=== PATIENT | female | born 1985 | race American Indian/Alaskan Native ===

== ENCOUNTER 2021-07-08 08:59 | Emergency (ER) | payer OTHER ==
[2021-07-08 11:07] LABS: Bacteria,Urine 1+ /HPF (Negative); Bilirubin,Urine NEG (Negative); Blood,Urine MOD (Negative); Color,Urine Yellow (Yellow); Mucus,Urine 3+ /HPF; Protein,Urine <15 mg/dL mg/dL (Negative); Urobilinogen,Urine < 2.0 mg/dL (<2.0)
--- NOTE | 2021-07-08 11:08 | Ultrasound Report ---
ULTRASOUND OBSTETRIC INDICATION / CLINICAL INFORMATION: Vaginal bleeding. - Clinical Gestational Age (GA) in weeks.days: 8.6 TECHNIQUE: Transabdominal and Transvaginal. COMPARISON: None available. FINDINGS: GESTATIONAL SAC: Well-defined oval shape and intrauterine in location. YOLK SAC: No significant abnormality. EMBRYO/FETUS: No significant abnormality. - [place]-Rump Length = 0.57 cm = 6.3 weeks.days - Heart Rate, beats per minute (if present) = 153 UTERUS: 1.5 cm fibroid in the anterior uterine body. ADNEXA: Both ovaries are normal in size. There is no evidence of adnexal mass. There is normal blood flow to both ovaries on Doppler exam. FREE FLUID: None. ADDITIONAL FINDINGS: None. IMPRESSION: 1. Single, living intrauterine with estimated sonographic age of 6.3 weeks.days. 2. 1.5 cm fibroid in the anterior uterine body. Signer Name: Jose Ardon MD Signed: 07/08/2021 11:04 AM Workstation Name: [id number]
--- NOTE | 2021-07-08 11:08 | Ultrasound Report ---
Please see combined report from the same date. Signer Name: Jose Ardon MD Signed: 07/08/2021 11:04 AM Workstation Name: [id number]
[2021-07-08 11:11] LABS: WBC,Urine < 1.0 /HPF (0.0-6.0)
[2021-07-08 11:32] LABS: Hematocrit 36.5 % (30.3-42.9); Hemoglobin 12.3 gm/dl (10.1-14.3); Mean Corpuscular HGB Conc 34 % (30-34); Mean Corpuscular Volume 102 fl (79-97); Platelet Count 275 K/mm3 (140-440); Red Cell Distribution Width 12.6 % (13.2-15.2)
--- NOTE | 2021-07-08 12:38 | Emergency Department Report ---
ED Female HPI - General Chief complaint: Vaginal Bleeding Stated complaint: /BLEEDING Source: patient Mode of arrival: Ambulatory Limitations: No Limitations - History of Present Illness Initial comments: 36-year-old female presents to the ED with vaginal bleeding. Patient is 4 Para 0 A 3. She states that she noticed some vaginal bleeding when she wipes. She denies having to use a maxi pad. States that she has had 3 miscarriage in the past. Denies any abdominal pain vaginal discharge at present time. She is alert and oriented x3. No acute distress noted. No ill appearance noted. Patient denies any chest pains or shortness of breath at present time. MD Complaint: vaginal bleeding Onset/Timin -: Gradual Severity scale (0 -10): 0 Worsens with: none Are you Now?: No Associated Symptoms: denies other symptoms - Related Data : 4 Para: 0 A: 3 Allergies Allergy/AdvReac Type Severity Reaction Status Date / Time No Known Allergies Allergy Unverified 07/08/21 09:44 ED Review of Systems ROS: Stated complaint: /BLEEDING Other details as noted in HPI Constitutional: denies: chills, fever Eyes: denies: eye pain, eye discharge, vision change ENT: denies: ear pain, throat pain Respiratory: denies: cough, shortness of breath, wheezing Cardiovascular: denies: chest pain, palpitations Endocrine: no symptoms reported Gastrointestinal: denies: abdominal pain, nausea, diarrhea Genitourinary: denies: urgency, dysuria, discharge Musculoskeletal: denies: back pain, joint swelling, arthralgia Skin: denies: rash, lesions Neurological: denies: headache, weakness, paresthesias Psychiatric: denies: anxiety, depression Hematological/Lymphatic: denies: easy bleeding, easy bruising ED Past Medical Hx - Past Medical History Previous Medical History?: Yes Additional medical history: Miscarriage x 3 - Surgical History Past Surgical History?: No ED Physical Exam - General Limitations: No Limitations General appearance: alert, in no apparent distress - Head Head exam: Present: atraumatic, normocephalic - Eye Eye exam: Present: normal appearance - ENT ENT exam: Present: mucous membranes moist - Neck Neck exam: Present: normal inspection - Respiratory Respiratory exam: Present: normal lung sounds bilaterally. Absent: respiratory distress - Cardiovascular Cardiovascular Exam: Present: regular rate, normal rhythm. Absent: systolic murmur, diastolic murmur, rubs, gallop - GI/Abdominal GI/Abdominal exam: Present: soft, normal bowel sounds - Extremities Exam Extremities exam: Present: normal inspection - Back Exam Back exam: Present: normal inspection - Neurological Exam Neurological exam: Present: alert, oriented X3 - Psychiatric Psychiatric exam: Present: normal affect, normal mood - Skin Skin exam: Present: warm, dry, intact, normal color. Absent: rash ED Course Vital Signs 07/08/21 09:48 Temperature 98.4 F Pulse Rate 90 Respiratory 18 Rate Blood Pressure 98/69 O2 Sat by Pulse 100 Oximetry ED Medical Decision Making - Lab Data Result diagrams: 07/08/21 11:21 - Radiology Data [facility] [address] [id number] Ultrasound Report Signed Patient: DELLA COTA MR#: [id number] : 1985 Acct:[id number] Age/Sex: 36 / F ADM Date: 07/08/21 Loc: ED Attending Dr: Ordering Physician: YESENIA RODRIGUEZ Date of Service: 07/08/21 Procedure(s): US OB <= 14 weeks fetus Accession Number(s): [id number] cc: YESENIA RODRIGUEZ ULTRASOUND OBSTETRIC INDICATION / CLINICAL INFORMATION: Vaginal bleeding. - Clinical Gestational Age (GA) in weeks.days: 8.6 TECHNIQUE: Transabdominal and Transvaginal. COMPARISON: None available. FINDINGS: GESTATIONAL SAC: Well-defined oval shape and intrauterine in location. YOLK SAC: No significant abnormality. EMBRYO/FETUS: No significant abnormality. - [place]-Rump Length = 0.57 cm = 6.3 weeks.days - Heart Rate, beats per minute (if present) = 153 UTERUS: 1.5 cm fibroid in the anterior uterine body. ADNEXA: Both ovaries are normal in size. There is no evidence of adnexal mass. There is normal blood flow to both ovaries on Doppler exam. FREE FLUID: None. ADDITIONAL FINDINGS: None. IMPRESSION: 1. Single, living intrauterine with estimated sonographic age of 6.3 weeks.days. 2. 1.5 cm fibroid in the anterior uterine body. Signer Name: Jose Ardon MD Signed: 07/08/2021 11:04 AM Workstation Name: [id number] Transcribed By: RT Dictated By: Jose Ardon MD Electronically Authenticated By: Jose Ardon MD Signed Date/Time: 07/08/21 1104 DD/ 1058 TD/TT: - Medical Decision Making 36-year-old female presents to the ED with vaginal bleeding. Patient is 4 Para 0 A 3. She states that she noticed some vaginal bleeding when she wipes. She denies having to use a maxi pad. States that she has had 3 miscarriage in the past. Denies any abdominal pain vaginal discharge at present time. She is alert and oriented x3. No acute distress noted. No ill appearance noted. Patient denies any chest pains or shortness of breath at present time. Patient is current followed by my [employer]. Physical examination is unremarkable. Transvaginal ultrasound shows single intrauterine at 6 weeks. Uterine fibroid noted. hCG count [id number] Rechecked the patient is resting quietly quietly and comfortable and feeling better. I discussed the results of diagnostic study, my clinical impression and the plan for further treatment with the patient. Patient agrees with plan and discharge at this present time. All question addressed. I have given the patient instruction regarding a diagnosis ,expectation ,follow- up and return precaution. I explained to the patient that emergent condition may arise and to return to the ED for new worsen and any new persisting condition. I have explained the importance of following up with the primary care physician or referral physician listed below has instructed. The patient verbalized understanding of discharge instruction. Critical care attestation.: If time is entered above; I have spent that time in minutes in the direct care of this critically ill patient, excluding procedure time. ED Disposition Clinical Impression: Vaginal bleeding affecting early Disposition: HOME / SELF CARE / HOMELESS Is pt being admited?: No Does the pt Need Aspirin: No Condition: Stable Instructions: Vaginal Bleeding During , First Trimester Additional Instructions: Follow-up with my [facility] Return to ED for any worsening symptoms Referrals: EMMA FORD MD [Primary Care Provider] - 3-5 Days Forms: Work/School Release Form(ED) Time of Disposition: 12:40
[2021-07-08 12:43] VITALS: BP 108/69
[2021-07-08 13:02] LABS: Alanine Aminotransferase 14 units/L (7-56); Albumin 4.2 g/dL (3.9-5); Blood Urea Nitrogen 9 mg/dL (7-17); Calcium 9.3 mg/dL (8.4-10.2); Hemolysis Index 25
[2021-07-08 13:05] LABS: BUN/Creatinine Ratio 15
== END 2021-07-08 12:43 | disposition home or self-care (01) ==
LOC: ED 08:59
DX: O20.8 Other hemorrhage in early pregnancy (principal); Z3A.01 Less than 8 weeks gestation of pregnancy
CPT/HCPCS: 36415; 76801; 76817; 80053; 81001; 84702; 85027; 86900; 86901; 99284